=== PATIENT | male | born 1955 | race Two or more races ===

== ENCOUNTER → 2016-11-15 | Outpatient (CLI) | payer MEDICARE, OTHER, MEDICAID ==
[~2016-11-15] VITALS: Ht 172.7 cm; Wt 94.0 kg
[~2016-11-15] MED LIST: ADV250 IH; ASPI1CPM8 PO; CANA300T PO; CARV12 PO; FURO80 PO; GABA-533 PO; INSU3INS3 INJ; KCL10IV INJ; KDUR10 PO; LOSA50TA37 PO; METF500T4 PO; MINO2.5 PO; ROSU20 PO
[2016-11-15 13:20] VITALS: BP 122/65
== END | disposition home or self-care (01) ==
LOC: SRCNTR 12:54
PROVIDERS: ATTEND Internal Medicine Critical Care Medicine
DX: E11.9 Type 2 diabetes mellitus without complications (principal); I10 Essential (primary) hypertension; G47.33 Obstructive sleep apnea (adult) (pediatric); J45.41 Moderate persistent asthma with (acute) exacerbation; Z86.73 Personal history of transient ischemic attack (TIA), and cerebral infarction without residual deficits
CPT/HCPCS: G0463

== ENCOUNTER → 2017-02-23 | Outpatient (CLI) | payer MEDICARE, OTHER ==
[~2017-02-23] VITALS: Ht 172.7 cm; Wt 96.0 kg
[~2017-02-23] MED LIST changes: -KCL10IV INJ
[2017-02-23 11:42] VITALS: BP 141/70
== END | disposition home or self-care (01) ==
LOC: SRCNTR 11:41
PROVIDERS: ATTEND Internal Medicine Critical Care Medicine
DX: I10 Essential (primary) hypertension (principal); E11.9 Type 2 diabetes mellitus without complications; G47.33 Obstructive sleep apnea (adult) (pediatric); J45.41 Moderate persistent asthma with (acute) exacerbation; Z86.73 Personal history of transient ischemic attack (TIA), and cerebral infarction without residual deficits
CPT/HCPCS: G0463

== ENCOUNTER → 2017-11-02 | Outpatient (CLI) | payer MEDICARE, OTHER ==
[~2017-11-02] VITALS: Ht 166.4 cm; Wt 89.5 kg
[~2017-11-02] MED LIST changes: +MORP30 PO; +OXYC30TA86 PO
[2017-11-02 12:14] VITALS: BP 126/66
== END | disposition home or self-care (01) ==
LOC: SRCNTR 12:05
PROVIDERS: ATTEND Internal Medicine Critical Care Medicine
DX: G47.33 Obstructive sleep apnea (adult) (pediatric) (principal); J45.41 Moderate persistent asthma with (acute) exacerbation; I10 Essential (primary) hypertension; E11.9 Type 2 diabetes mellitus without complications; Z86.73 Personal history of transient ischemic attack (TIA), and cerebral infarction without residual deficits
CPT/HCPCS: G0463

== ENCOUNTER → 2018-03-07 | Outpatient (CLI) | payer MEDICARE, OTHER ==
[~2018-03-07] VITALS: Ht 154.9 cm; Wt 92.0 kg
[~2018-03-07] MED LIST changes: -ADV250 IH; -METF500T4 PO; +METF500T6 PO; -MINO2.5 PO
[2018-03-07 14:10] VITALS: BP 137/57
== END | disposition home or self-care (01) ==
LOC: SRCNTR 14:00
PROVIDERS: ATTEND Internal Medicine Critical Care Medicine
DX: G47.33 Obstructive sleep apnea (adult) (pediatric) (principal); J45.41 Moderate persistent asthma with (acute) exacerbation; I10 Essential (primary) hypertension; E11.9 Type 2 diabetes mellitus without complications; Z86.73 Personal history of transient ischemic attack (TIA), and cerebral infarction without residual deficits
CPT/HCPCS: G0463